=== PATIENT | female | born 1930 | race Caucasian/White ===

== ENCOUNTER 2017-06-21 14:57 | Emergency (ER) | payer MEDICARE, MEDICAID | END 2017-06-21 15:02 | disposition E | LOC: ERS 14:57 | DX: I46.9 Cardiac arrest, cause unspecified (principal); I10 Essential (primary) hypertension; F03.90 Unspecified dementia, unspecified severity, without behavioral disturbance, psychotic disturbance, mood disturbance, and anxiety | CPT/HCPCS: 92950; 94760; 96374; 96375 ==